=== PATIENT | male | born 2005 | race Caucasian/White ===

== ENCOUNTER 2024-11-28 14:01 | Emergency (ER) | payer OTHER ==
[~2024-11-28] VITALS: Ht 180.3 cm; Wt 90.7 kg
[2024-11-28 14:11] VITALS: BP 126/84; TEMP 98.2; O2SAT 98
[2024-11-28] MEDS ORDERED: IBUP-1490 PO (15:04)
[2024-11-28] MEDS ORDERED: ACET325T53 PO (15:04)
== END 2024-11-28 15:11 | disposition home or self-care (01) ==
LOC: ER 14:05
DX: R20.0 Anesthesia of skin (principal); L97.829 Non-pressure chronic ulcer of other part of left lower leg with unspecified severity; M54.9 Dorsalgia, unspecified; J45.909 Unspecified asthma, uncomplicated; Z87.39 Personal history of other diseases of the musculoskeletal system and connective tissue